=== PATIENT | female | born 1950 | race Caucasian/White ===

== ENCOUNTER → 2016-10-21 | Outpatient (CLI) | payer OTHER ==
[2016-03-09 11:38] VITALS: BP 121/65
[~2016-10-21] MED LIST: ATOR10TA PO; BACI28.34 TP; CEPH-264 PO; DIPH25CA58 PO; GABA600T PO; GLYB2.5T2 PO; HYDR-2758 PO; LEVO750T31 PO; METF500T4 PO; MINO2.5T12 PO; OMEP20TA63 PO; OXYC1TAB7 PO; SENN-79 PO; SITA100T PO
--- NOTE | 2016-10-21 10:24 | KCIC ---
Bilateral lower extremity venous Doppler ultrasound History: Swelling in bilateral lower extremities, left greater than right. Comparison: None. Procedure: Color flow Doppler, Doppler spectral analysis, and 2D images are obtained with and without compression in the area of the common femoral vein, superficial femoral vein - femoral vein junction, main femoral vein (superficial femoral vein) and popliteal vein. Veins of the proximal calf are also imaged. Findings: There is normal color flow, augmentation, and compressibility of all visualized vein segments. No evidence of deep venous thrombus is present. Elongated but normal morphology left groin lymph node. Normal right groin lymph nodes. IMPRESSION: No evidence of right or left lower extremity deep venous thrombosis. Electronically signed by: Helio Ferrell MD (10/21/2016 10:21 AM)
--- NOTE | 2016-10-21 12:17 | KCIC ---
MRI of the lumbar spine without contrast 10/21/2016 CLINICAL HISTORY: Low back pain which radiates down the left leg for the last 6 weeks. TECHNIQUE: Unenhanced T1-weighted and T2-weighted sagittal and axial and inversion recovery sagittal images of the lumbar spine were obtained. FINDINGS: Mild lateral curvature of the lumbar spine is seen convex to the left. Minimal anterolisthesis of L4 in relation to L5 is noted. Degenerative signal changes are seen involving all of the disks of the lumbar spine. Loss of height of the L2-3 disc is noted. Degenerative signal changes are seen within the marrow surrounding this disc. The conus medullaris is normal in morphology, position, and signal characteristics. At the L1-2 disc space there is a minimal generalized disc bulge. Degenerative changes are seen involving the facet joints bilaterally. These findings do not result in significant central spinal canal or neural foraminal stenosis. At the L2-3 disc space there is a mild to moderate generalized disc bulge. Degenerative changes are seen involving the facet joints bilaterally. There are small facet joint effusions. Mild ligamentum flavum hypertrophy is seen bilaterally. These findings when combine result in mild central spinal canal stenosis. No neural foraminal stenosis is seen. At the L3-4, L4-5 and L5-S1 disc spaces there are minimal to mild generalized disc bulges. Degenerative changes are seen involving the facet joints bilaterally. There is mild ligamentum flavum hypertrophy. These findings do not result in significant central spinal canal or neural foraminal stenosis. IMPRESSION: The changes of degenerative disc disease are seen involving the lumbar spine. These findings result in mild central spinal canal stenosis at L2-3. No neural foraminal stenosis is seen. Electronically signed by: Al Comer MD (10/21/2016 12:14 PM)
== END | disposition home or self-care (01) ==
LOC: KCIC MRI 07:43
PROVIDERS: ATTEND Family Medicine
DX: M47.896 Other spondylosis, lumbar region (principal); M48.06 Spinal stenosis, lumbar region; M79.89 Other specified soft tissue disorders
CPT/HCPCS: 72148; 93970

== ENCOUNTER → 2016-10-28 | Outpatient (CLI) | payer OTHER ==
[2016-03-09 11:38] VITALS: BP 121/65
--- NOTE | 2016-10-28 08:55 | KCIC ---
EXAM: Bilateral screening mammogram. HISTORY: 66-year-old female presents for screening mammography. TECHNIQUE: Full-field digital craniocaudal and mediolateral oblique views of both breasts are obtained for evaluation. Computer aided detection with Open[employer] software version 9.3 was applied. COMPARISON: 09/28/2013 BREAST PARENCHYMAL DENSITY: Level B - Scattered fibroglandular densities. FINDINGS: There is no new suspicious mass, microcalcification or region of architectural distortion. IMPRESSION: BI-RADS Category 2: Benign finding(s). RECOMMENDATION: Annual mammography is recommended. If your mammogram demonstrates that you have dense breast tissue, which could hide abnormalities, and if you have other risk factors for breast cancer that have been identified, you might benefit from supplemental screening tests that may be suggested by your ordering physician. Dense breast tissue, in and of itself, is a relatively common condition. This information is not provided to cause undue concern, but rather to raise your awareness and to promote discussion with your physician regarding the presence of other risk factors, in addition to dense breast tissue. A report of your mammography results will be sent to you and your physician. You should contact your physician if you have any questions or concerns regarding this report. Mammography is a sensitive method for finding small breast cancers, but it does not detect them all and is not a substitute for careful clinical examination. A negative mammogram does not negate a clinically suspicious finding and should not result in delay in biopsying a clinically suspicious abnormality. PQRS compliance statement - Patient information was entered into a reminder system with a target due date for the next mammogram. "Our facility is accredited by the [employer] Mammography Program." Electronically signed by: Savannah Alvarado MD (10/28/2016 8:51 AM) [id number]
== END | disposition home or self-care (01) ==
LOC: KCIC MAMMO 08:04
PROVIDERS: ATTEND Family Medicine
DX: Z12.31 Encounter for screening mammogram for malignant neoplasm of breast (principal)
CPT/HCPCS: G0202; 77067

== ENCOUNTER 2018-01-06 08:31 | Outpatient (CLI) | payer MEDICARE, OTHER ==
[2018-01-06] VITALS (8 sets, daily range): BP systolic 104–154; BP diastolic 49–84
[~2018-01-06] VITALS: Ht 160 cm; Wt 93.9 kg
[~2018-01-06 08:31] MED LIST changes: +METF500T16 PO; -METF500T4 PO
[2018-01-06 09:07] LABS: BASO # 0.1 x10^3/uL (0.0-0.2); BASO % 0 % (0-3); EOS # 0.1 x10^3/uL (0.0-0.7); EOS % 1 % (0-3); HEMATOCRIT 42.6 % (36.0-47.0); HEMOGLOBIN 14.6 g/dL (12.0-15.5); LYMPH # 2.6 x10^3/uL (1.0-4.8); LYMPH % 19 % (24-48); MEAN CORPUSCULAR HEMOGLOBIN 30 pg (25-35); MEAN CORPUSCULAR HGB CONC 34 g/dL (31-37); MEAN CORPUSCULAR VOLUME 87 fL (79-100); MONO % 8 % (0-9); NEUT # 9.6 x10^3uL (1.8-7.7); NEUT % 72 % (31-73); PLATELET COUNT 318 x10^3/uL (140-400); RED BLOOD COUNT 4.91 x10^6/uL (3.50-5.40); RED CELL DISTRIBUTION WIDTH 13.5 % (11.5-14.5); WHITE BLOOD COUNT 13.4 x10^3/uL (4.0-11.0)
[2018-01-06] MEDS ORDERED: NYST15PO9 TP (09:30)
[2018-01-06] MEDS ORDERED: NYSTATIN PO (09:30)
[2018-01-06] MEDS ORDERED: METR500T8 PO (09:30)
[2018-01-06] MEDS ORDERED: HYDR15CR20 TP (09:30)
[2018-01-06] MEDS ORDERED: FLUO40CR TP (09:30)
[2018-01-06] MEDS ORDERED: CANA300T PO (09:30)
[2018-01-06] MEDS ORDERED: OMEG1CAP2 PO (09:30)
[2018-01-06] MEDS ORDERED: CLOB15CR TP (09:30)
[2018-01-06] MEDS ORDERED: NYST15CR2 TP (09:30)
[2018-01-06] MEDS ORDERED: MIDAZOLAM HCL/PF 2 MG/2 ML VIAL. ONE (10:00)
[2018-01-06] MEDS ORDERED: fentaNYL PF VIAL 100 MCG/2 ML VIAL ONE (10:01)
[2018-01-06] MEDS ORDERED: LIDOCAINE WITH 8.4% SOD BICARB 3 ML DISP.SYRIN. ONE (10:09)
[2018-01-06] MEDS ORDERED: MIDAZOLAM HCL/PF 2 MG/2 ML VIAL. IV ONE (10:15)
[2018-01-06] MEDS ORDERED: fentaNYL PF VIAL 100 MCG/2 ML VIAL IV ONE (10:15)
[2018-01-06] MEDS ORDERED: LIDOCAINE WITH 8.4% SOD BICARB 3 ML DISP.SYRIN. IJ ONE (10:15)
--- NOTE | 2018-01-06 16:43 | RAD ---
CT-guided bone marrow biopsy. 01/06/2018 4:38 PM Indication: Leukocytosis Discussion: The risks and benefits of the procedure, including but not limited to, bleeding and infection were discussed patient. Informed consent was obtained. The patient was brought to the CT scanner and placed in the prone position. A timeout procedure was performed. Fisher Eel Spear CT imaging of the pelvis demonstrated left ilium amenable to bone marrow biopsy. The overlying soft tissues were prepped and draped using maximum sterile barrier technique. 1% lidocaine without epinephrine was administered for local anesthesia. Under intermittent CT guidance, an OncControl needle was advanced into the bone marrow of the left iliac crest. 2 Aspirates and 1 core biopsy samples were obtained. Samples were delivered to pathology was present at the time of procedure. The needle was removed and manual pressure held to achieve hemostasis. No immediate complications were identified. The procedure was performed under conscious sedation including continuous cardiopulmonary monitoring via dedicated sedation nurse. Sedation time: 20 minutes Impression: Successful CT-guided bone marrow biopsy of the left iliac crest . PQRS Compliance Statement: One or more of the following individualized dose reduction techniques were utilized for this examination: 1. Automated exposure control 2. Adjustment of the mA and/or kV according to patient size 3. Use of iterative reconstruction technique
== END 2018-01-06 11:29 | disposition home or self-care (01) ==
LOC: INTRAD 08:31
PROVIDERS: ATTEND Internal Medicine Hematology & Oncology
DX: D72.829 Elevated white blood cell count, unspecified (principal); Z79.899 Other long term (current) drug therapy; Z79.01 Long term (current) use of anticoagulants
CPT/HCPCS: 36415; 38222; 77012; 85025; 85610; 85730; 88184; 88185; 88237; 99152; J2250; J3010